=== PATIENT | female | born 1990 | race Hispanic/Latino ===

== ENCOUNTER 2024-05-11 16:55 | Emergency (ER) | payer SELFPAY ==
[2024-05-11 16:59] VITALS: BP 124/89; PULSE 107; RESP 16; TEMP 36.8; O2SAT 98
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
[2024-05-11 20:26] VITALS: BP 126/92; PULSE 82; RESP 16; TEMP 36.8; O2SAT 98
== END 2024-05-11 20:29 | disposition home or self-care (01) ==
PROVIDERS: Emergency Provider Emergency Medicine; Visit Provider Emergency Medicine
DX: S39.012A Strain of muscle, fascia and tendon of lower back, initial encounter (principal); R51.9 Headache, unspecified; M54.2 Cervicalgia; V48.6XXA Car passenger injured in noncollision transport accident in traffic accident, initial encounter
CPT/HCPCS: 70450; 72100; 72125; 99282